=== PATIENT | male | born 1995 | race Two or more races ===

== ENCOUNTER 2017-10-06 16:42 | Emergency (ER) | payer OTHER ==
[~2017-10-06] VITALS: Ht 165.1 cm; Wt 45.8 kg
[2017-10-06 16:51] VITALS: Ht 165.1 cm; Wt 45.8 kg
[2017-10-06 21:42] VITALS: BP 107/68
== END 2017-10-06 21:42 | disposition home or self-care (01) ==
LOC: ED 16:42
DX: N50.89 Other specified disorders of the male genital organs (principal); Z88.0 Allergy status to penicillin
CPT/HCPCS: 87491; 87591